=== PATIENT | female | born 1960 | race African-American/Black ===

== ENCOUNTER 2020-01-23 10:29 | Outpatient (CLI) | payer OTHER ==
--- NOTE | 2020-01-23 14:16 | CT ---
CT LUNG CANCER SCREENING EVALUATION WITHOUT IV CONTRAST: 01/23/20 INDICATION: 59-year-old female with history of tobacco abuse; patient has 40+ pack years smoking history with two packs per day. No current problems. COMPARISON: No CT comparisons of the thorax are available. FINDINGS: Mild respiratory motion artifact slightly limits image detail. There are scattered area of centrilobu lar and paraseptal emphysema seen in a predominant upper lobe distribution affecting both lungs. Smal l sub 4 mm pulmonary nodule is seen within the right upper lobe, adjacent to the right minor fissure. Areas of mild scarring versus subsegmental volume loss within the right middle lobe. No suspicious n odule is seen within the left lung. There are calcified lymph nodes within the right hilar region. No definite enlarged lymph node is see n within the mediastinum. Visualized adrenal glands appear within normal limits. There are scattered degenerative and osteoarthritic change. IMPRESSION: Lung RADS category 2 - benign. Recommend low dose lung cancer screening CT in one year. Category S: Moderate emphysema. POS: [facility]
== END 2020-01-23 10:30 | disposition home or self-care (01) ==
LOC: BICCT 10:29
PROVIDERS: ATTEND Family Medicine
DX: Z12.2 Encounter for screening for malignant neoplasm of respiratory organs (principal); Z87.891 Personal history of nicotine dependence
CPT/HCPCS: G0297

== ENCOUNTER 2021-02-25 09:04 | Outpatient (CLI) | payer OTHER | END 2021-02-25 09:05 | disposition home or self-care (01) | LOC: BICCT 09:04 | PROVIDERS: ATTEND Family Medicine | DX: Z12.2 Encounter for screening for malignant neoplasm of respiratory organs (principal); F17.210 Nicotine dependence, cigarettes, uncomplicated; R91.8 Other nonspecific abnormal finding of lung field | CPT/HCPCS: 71271 ==